=== PATIENT | female | born 1950 | race Hispanic/Latino ===

== ENCOUNTER 2019-02-05 06:20 | Day surgery (SDC) | payer MEDICARE ==
[2019-02-05] MEDS ORDERED: NACL 0.9% 500 ML 500 ML IV SCH (07:00)
[2019-02-05] MEDS ORDERED: NACL 0.45% 500 ML IV SCH (07:00)
[2019-02-05 08:00] LABS: Basophils # (Auto) 0.2 K/mm3 (0.0-0.1); Basophils % (Auto) 1.9 % (0.0-1.8); Eosinophils # (Auto) 0.2 K/mm3 (0.0-0.4); Eosinophils % (Auto) 2.8 % (0.0-4.3); Hemoglobin 13.9 gm/dl (10.1-14.3); Lymphocytes # (Auto) 1.9 K/mm3 (1.2-5.4); Lymphocytes % (Auto) 22.3 % (13.4-35.0); Mean Corpuscular HGB Conc 34 % (30-34); Mean Corpuscular Volume 93 fl (79-97); Monocytes # (Auto) 0.4 K/mm3 (0.0-0.8); Platelet Count 288 K/mm3 (140-440); Red Cell Distribution Width 14.1 % (13.2-15.2)
[2019-02-05] MEDS ORDERED: ECOTRIN PO ONE (08:00)
[2019-02-05 08:13] LABS: INR 0.91 (0.87-1.13)
[2019-02-05 08:20] LABS: BUN/Creatinine Ratio 65; Blood Urea Nitrogen 26 mg/dL (7-17); Hemolysis Index 7
[2019-02-05] MEDS ORDERED: HEPARIN/NS 5000 UNIT/500ML(CATH LAB) 1,000 ML IR ONE (09:21)
[2019-02-05] MEDS ORDERED: HEPARIN 10,000 UNITS/10 ML ONE (09:21)
[2019-02-05] MEDS ORDERED: NITROGLYCERIN SYRINGE 3 ML ONE (09:22)
[2019-02-05] MEDS ORDERED: CALAN ONE (09:22)
[2019-02-05] MEDS ORDERED: VERSED ONE (09:22)
[2019-02-05] MEDS ORDERED: SUBLIMAZE ONE (09:22)
[2019-02-05] MEDS ORDERED: XYLOCAINE 2% INFILTRATI ONE (09:22)
--- NOTE | 2019-02-05 10:38 | Cardiac Catherization Report ---
CARDIAC CATHETERIZATION REFERRING PHYSICIAN: Miguelangel Gutierrez MD INDICATION FOR PROCEDURE: The patient is a pleasant 68-year-old female with multiple risk factors, who presents with recurrent typical chest pain despite negative stress test. Risks, benefits, alternatives were discussed at length prior to obtaining informed consent. PROCEDURE IN DETAIL: The patient was brought to the catheterization lab in a postabsorptive state, prepped and draped in sterile fashion. Justice's test in right hand was normal. A 2 mL of 2% lidocaine was used to anesthetize the right wrist. A standard 6-Vincentian hydrophilic sheath was used to cannulate the right radial artery via modified Seldinger technique. All exchanges performed to exchange a J-tip guidewire. A JL3.5 catheter was used to engage the left main. No dampening or ventricularization. Cineangiography was performed in all projections. JR4 catheter was used to cross the aortic valve under fluoroscopic guidance. Left ventriculography was performed in 30 BROWN and 30 LIBERIAN projections via hand injections, catheter flushed. Manual pullback performed with continuous pressure monitoring. Catheter was used to engage the right coronary. No dampening or ventricularization. Cineangiography was performed in all projections. Next, due to recurrent chest pain, elevated blood pressure, a root aortogram was performed under fluoroscopic guidance in the LIBERIAN projection with a power injector. Next, catheter was removed from the body of wire, sheath removed. Manual pressure was used for hemostasis. I directly supervised the administration of moderate sedation from 9:50 a.m. to 10:20 a.m. with fentanyl and Versed. There were no immediate complications noted. DATA: Aortic pressure is 110/60, LV pressure is 110, LVEDP of 20 mmHg. Left ventriculography reveals normal systolic performance with estimated ejection fraction of 55-60%. No evidence of aortic stenosis. CORONARY ANATOMY: This is a codominant system. Left main is short. No significant blockages, bifurcates in left anterior descending and left circumflex. LAD is a moderate sized vessel, courses ____, there is no significant disease in the LAD or diagonal system. No significant disease in the large left circumflex or OM system. Left ventriculography reveals normal systolic performance, estimated ejection fraction of 55-60%. Normal LVEDP. No evidence of aortic stenosis. Normal sinus rhythm throughout. Right coronary is small vessel, courses AV groove. No significant disease. A root aortogram reveals normal contour, normal great vessel takeoff. No evidence of dissection, penetrating aortic ulcer, or aortic insufficiency. CONCLUSIONS: 1. No angiographic evidence of significant epicardial coronary artery disease in this codominant system. 2. Normal left ventricular systolic performance, estimated ejection fraction of 55-60%. 3. No evidence of aortic stenosis. 4. Normal LVEDP. 5. Root aortogram without evidence of dissection, penetrating aortic ulcer or aortic insufficiency. The patient is clinically stable, chest pain free. Aggressive primary and secondary prevention measures, standard radial care. Results of procedure explained to the patient and . All questions and concerns were addressed. Follow up with me in the office. [facility]# [id number] JASON/ROSINA
--- NOTE | 2019-02-05 11:25 | Short Stay Summary ---
Short Stay Documentation Date of service: 02/05/19 - History H&P: obtained from office - Allergies and Medications Current Medications: Allergies amoxicillin [From Augmentin] Adverse Reaction (Unverified 02/05/19 06:21) Headache clavulanic acid [From Augmentin] Adverse Reaction (Unverified 02/05/19 06:21) Headache codeine Adverse Reaction (Unverified 02/05/19 06:21) Nausea Home Medications Medication Instructions Recorded Confirmed Last Taken Type ALBUTEROL NEB's 90 mcg INHALATION PRN 02/05/19 02/05/19 02/03/19 History 1 puff Aspirin EC 81 mg PO DAILY 02/05/19 02/05/19 02/05/19 History 1 tab Azilsartan Medoxomil [Edarbi] 40 mg PO DAILY 02/05/19 02/05/19 02/04/19 History 1 tab Metoprolol 12.5 mg PO DAILY 02/05/19 02/05/19 02/04/19 History 1 tab Torsemide [Demadex] 10 mg PO DAILY 02/05/19 02/05/19 02/04/19 History 1 tab Active Medications Sodium Chloride (Nacl 0.9% 500 Ml) 500 mls @ 50 mls/hr IV DIRECT SEFERINO Stop: 02/05/19 16:59 Sodium Chloride (Nacl 0.45%) 500 mls @ 50 mls/hr IV DIRECT SEFERINO - Brief post op/procedure progress note Date of procedure: 02/05/19 Pre-op diagnosis: recurrent chest pain Post-op diagnosis: other (normal coronaries) Procedure: [facility] - see dictated cath report Anesthesia: local Estimated blood loss: none Condition: stable - Disposition Condition at discharge: Good Disposition: DC-01 TO HOME OR SELFCARE - Discharge Diagnoses (1) Normal coronary arteries Status: Chronic Short Stay Discharge Plan Activity: advance as tolerated Wound: open to air, keep clean and dry, per your surgeon's advice Follow up with: TAM JOSEPH MD [Primary Care Provider] - 7 Days Forms: CardCath PCI D/C Instructions
[2019-02-05 13:38] VITALS: BP 125/77
== END 2019-02-05 13:40 | disposition home or self-care (01) ==
LOC: CATHLABREC 06:20
PROVIDERS: ATTEND Internal Medicine
DX: R07.89 Other chest pain (principal); I20.8 Other forms of angina pectoris; I11.0 Hypertensive heart disease with heart failure; I50.9 Heart failure, unspecified; G47.30 Sleep apnea, unspecified; Z90.49 Acquired absence of other specified parts of digestive tract; Z88.5 Allergy status to narcotic agent; Z88.6 Allergy status to analgesic agent; Z79.82 Long term (current) use of aspirin; Z79.899 Other long term (current) drug therapy; Z88.8 Allergy status to other drugs, medicaments and biological substances; Z82.49 Family history of ischemic heart disease and other diseases of the circulatory system
CPT/HCPCS: 36415; 80048; 85025; 85610; 85730; 93005; 93010; 93458; 93567; 99156; 99157; C1894; J1644; J2250; J3010; J7040; Q9967